=== PATIENT | female | born 1970 | race Caucasian/White ===

== ENCOUNTER 2020-02-04 07:01 | Emergency (ER) | payer OTHER ==
[~2020-02-04] VITALS: Ht 162.6 cm; Wt 65.8 kg
[2020-02-04] MEDS ORDERED: LEVO-T75 MCG PO (07:17)
[2020-02-04 08:14] LABS: INFLUENZA A ANTIGEN Negative (Negative); INFLUENZA B ANTIGEN Negative (Negative)
[2020-02-04] MEDS ORDERED: ZPAK PO (08:44)
[2020-02-04] MEDS ORDERED: VENTOLIN HFA 1818 GM INH (08:44)
[2020-02-04 08:54] VITALS: BP 135/75
--- NOTE | 2020-02-04 09:42 | EKG ---
[place] [address] ELECTROCARDIOGRAM REPORT Name: BOX,SRI Rosario Room: [facility]#: [id number] Admission: 02/04/20 Attend Phys: Discharge: 02/04/20 Date of : 68 Date of Service: 02/04/20714 Report #: [id number] THIS REPORT FOR: //name// [facility] ED Test Date: 2020-02-04 Test Time: 07:15:51 Pat Name: SRI BOX Department: Room: Gender: [employer]: RUDI : 1970 Requested By: Luisito Bridges Order Number: [id number] MD: Bradley Rose Measurements Intervals [place] Rate: 81 P: 62 ND: 133 QRS: 54 QRSD: 85 T: 50 QT: 383 QTc: 445 Interpretive Statements Sinus rhythm Probable left atrial enlargement RSR' in V1 or V2, probably normal variant Baseline wander in lead(s) V3,V4 No previous ECG available for comparison Electronically Signed On 02-04-2020 9:40:54 CDT by Bradley Rose [email or web address] <ELECTRONICALLY SIGNED> By: Bradley Rose MD, FACC 02/04/20 0940 4 Bradley Rose MD, [facility] /EPI
== END 2020-02-04 08:54 | disposition home or self-care (01) ==
LOC: M.ERS 07:01
PROVIDERS: Family Medicine
DX: J40 Bronchitis, not specified as acute or chronic (principal); E03.9 Hypothyroidism, unspecified

== ENCOUNTER 2021-01-24 10:21 | Emergency (ER) | payer BC, OTHER ==
[~2021-01-24] VITALS: Ht 162.6 cm; Wt 68.0 kg
[~2021-01-24 10:21] MED LIST: LEVO-T75 MCG PO; VENTOLIN HFA 1818 GM INH; ZPAK PO
[2021-01-24] MEDS ORDERED: WELLBUTRIN XL300 MG PO (10:34)
[2021-01-24 11:10] LABS: URINE BILIRUBIN NEGATIVE (Negative); URINE BLOOD NEGATIVE (Negative); URINE CLARITY CLEAR; URINE COLOR YELLOW; URINE GLUCOSE-RANDOM NEGATIVE (Negative); URINE KETONES NEGATIVE (Negative); URINE LEUKOCYTES-REFLEX NEGATIVE (Negative); URINE NITRITE-REFLEX NEGATIVE (Negative); URINE PROTEIN NEGATIVE (Negative); URINE SPECIFIC GRAVITY >= 1.030 (1.005-1.030); URINE UROBILINOGEN 0.2 E.U./dl (0.2-1.0)
[2021-01-24] MEDS ORDERED: MEDROLDOSEPACK PO (12:25)
[2021-01-24] MEDS ORDERED: NORCO5 PO (12:25)
[2021-01-24 13:00] VITALS: BP 144/57
== END 2021-01-24 13:02 | disposition home or self-care (01) ==
LOC: M.ERS 10:21
PROVIDERS: Nurse Practitioner Family
DX: M51.36 Other intervertebral disc degeneration, lumbar region (principal); M47.896 Other spondylosis, lumbar region; M54.41 Lumbago with sciatica, right side; E03.9 Hypothyroidism, unspecified